=== PATIENT | female | born 1970 | race African-American/Black ===

== ENCOUNTER 2020-12-23 18:46 | Inpatient (IN) | payer OTHER ==
[2020-12-23] MEDS ORDERED: ACETAMINOPHEN 1000 MG/100 ML VIAL IVPB ONE (20:38)
[2020-12-23] MEDS ORDERED: DEXAMETHASONE SOD PHOSPHATE 4 MG/1 ML VIAL IVPUSH ONE (20:44)
[2020-12-23] MEDS ORDERED: DEXAMETHASONE SOD PHOSPHATE 10 MG/1 ML VIAL ONE (21:09)
[2020-12-23 21:58] LABS: BASO % 0.4 % (0-2.0); HEMATOCRIT 39.6 % (32.4-45.2); HEMOGLOBIN 12.7 GM/dL (10.7-15.3); MCH 26.3 pg (25.7-33.7); MCHC 32.2 g/dl (32.0-36.0); MEAN CELL VOLUME 81.7 fl (80-96); MEAN PLT VOLUME 8.7 fl (7.5-11.1); MONO % 4.6 % (3.8-10.2); PLATELET COUNT 292 10^3/uL (134-434); RBC 4.84 M/mm3 (3.60-5.2); RDW 17.6 % (11.6-15.6); WHITE BLOOD COUNT 6.4 K/mm3 (4.0-10.0)
[2020-12-23 22:08] LABS: INR 1.08 (0.83-1.09); PROTHROMBIN TIME (PATIENT) 12.7 SEC (9.7-13.0)
[2020-12-23 22:11] LABS: ACTIVATED PTT 31.5 SECONDS (25.2-36.5)
[2020-12-23 22:16] LABS: CHLORIDE 109 mmol/L (98-107); SODIUM 136 mmol/L (136-145)
[2020-12-23 22:19] LABS: CALCIUM 7.9 mg/dL (8.5-10.1)
[2020-12-23 22:20] LABS: ALBUMIN 3.1 g/dl (3.4-5.0); BLOOD UREA NITROGEN 10.3 mg/dL (7-18); CO2 20 mmol/L (21-32); MAGNESIUM 1.8 mg/dL (1.8-2.4)
[2020-12-23 22:23] LABS: CREATININE 1.5 mg/dL (0.55-1.3); PHOSPHOROUS 2.4 mg/dL (2.5-4.9); SGOT/AST 130 U/L (15-37); SGPT/ALT 74 U/L (13-61)
[2020-12-23 22:24] LABS: BILIRUBIN,DIRECT < 0.1 mg/dL (0.0-0.2)
[2020-12-23 22:25] LABS: BILIRUBIN,TOTAL 0.4 mg/dL (0.2-1); TOT PROT 8.1 g/dl (6.4-8.2)
[2020-12-23 22:26] LABS: ALK PHOS 67 U/L (45-117)
[2020-12-23 22:29] LABS: LDH 864 U/L (84-246)
[2020-12-23 22:40] LABS: VENOUS BASE EXCESS -2.7 mmol/L (-2-2); VENOUS O2 SATURATION 94.6 % (70-80); VENOUS PCO2 35.8 mmHg (38-52); VENOUS PH 7.397 (7.310-7.410)
[2020-12-23 22:40] LABS: GLUCOSE,RANDOM 96 mg/dL (74-106)
[2020-12-23 22:42] LABS: ANION GAP 6 MMOL/L (8-16)
[2020-12-23 23:27] LABS: MAGNESIUM 1.9 mg/dL (1.8-2.4)
[2020-12-23 23:30] LABS: PHOSPHOROUS 1.9 mg/dL (2.5-4.9)
[2020-12-23] MEDS ORDERED: ACETAMINOPHEN 325 MG TABLET (FP) PO ONE (23:50)
[2020-12-23] MEDS ORDERED: ACETAMINOPHEN 325 MG TABLET (FP) ONE (23:52)
[2020-12-24] MEDS ORDERED: ALBUTEROL SO4 HFA INHALER IH PRN (00:39)
[2020-12-24] MEDS ORDERED: GABAPENTIN 300 MG CAPSULE PO SCH (06:00)
[2020-12-24 07:34] VITALS: BMI 52.9
[2020-12-24 08:36] LABS: BASO % 0.1 % (0-2.0); HEMATOCRIT 37.1 % (32.4-45.2); HEMOGLOBIN 12.1 GM/dL (10.7-15.3); LYMPH % 16.9 % (8-40); MCH 26.7 pg (25.7-33.7); MCHC 32.6 g/dl (32.0-36.0); MEAN CELL VOLUME 81.9 fl (80-96); MEAN PLT VOLUME 9.2 fl (7.5-11.1); MONO % 1.9 % (3.8-10.2); NEUT % 81.1 % (42.8-82.8); PLATELET COUNT 317 10^3/uL (134-434); RBC 4.53 M/mm3 (3.60-5.2); RDW 17.4 % (11.6-15.6); WHITE BLOOD COUNT 5.2 K/mm3 (4.0-10.0)
[2020-12-24 08:55] LABS: CALCIUM 8.1 mg/dL (8.5-10.1)
[2020-12-24 08:56] LABS: BLOOD UREA NITROGEN 10.5 mg/dL (7-18)
[2020-12-24 08:59] LABS: CREATININE 1.3 mg/dL (0.55-1.3)
[2020-12-24 09:00] LABS: BILIRUBIN,TOTAL 0.2 mg/dL (0.2-1); TOT PROT 7.5 g/dl (6.4-8.2)
[2020-12-24] MEDS ORDERED: GABAPENTIN 400 MG CAPSULE ONE ×3 (10:17→20:42)
[2020-12-24] MEDS ORDERED: GABAPENTIN 100 MG CAPSULE ONE ×3 (10:17→20:42)
[2020-12-24] MEDS: amLODIPine BESYLATE 5 MG TABLET (FP) PO SCH (10:20)
[2020-12-24] MEDS: TOPIRAMATE 100 MG TABLET PO SCH ×2 (10:20→21:42)
[2020-12-24] MEDS: GABAPENTIN 400 MG, GABAPENTIN 100 MG PO SCH ×3 (10:20→21:42)
[2020-12-24] MEDS: ENOXAPARIN NA (PORCINE) 40 MG/0.4 ML DISP.SYRIN SQ SCH (10:20)
[2020-12-24] MEDS: guaiFENesin 200 MG/10 ML 10 ML UNIT-DOSE CUPS PO PRN ×2 (10:21→21:42)
[2020-12-24] MEDS: DEXAMETHASONE SOD PHOSPHATE 10 MG/1 ML VIAL IVPUSH SCH (10:21)
[2020-12-24] MEDS: ACETAMINOPHEN 325 MG TABLET (FP) PO PRN (10:22)
[2020-12-24] MEDS: CYCLOBENZAPRINE HCL 10 MG TABLET (FP) PO PRN (12:47)
[2020-12-24] MEDS: CHOLECALCIFEROL (VIT D3) 1,000 UNIT (25 MCG) TABLET PO SCH (12:47)
[2020-12-24] MEDS: ONDANSETRON 4 MG TABLET PO PRN (12:47)
[2020-12-24] MEDS: ASCORBIC ACID 500 MG TABLET (FP) PO SCH ×2 (12:47→21:42)
[2020-12-24] MEDS: ZINC SULFATE 220 MG CAPSULE (FP) PO SCH (12:47)
[2020-12-24] MEDS ORDERED: REMDESIVIR 200 MG in SODIUM CHLORIDE 250 ML IVPB ONE (15:00)
[2020-12-24 15:25] LABS: EPI CELLS 11 /uL (0-25.1); HYALINE CASTS 1 /uL (0-3.1); URINE APPEARANCE CLEAR; URINE BACTERIA 192 /uL (0-1359); URINE BILIRUBIN NEGATIVE (NEGATIVE); URINE COLOR YELLOW; URINE GLUCOSE (UA) NEGATIVE (NEGATIVE); URINE KETONE NEGATIVE (NEGATIVE); URINE LEUK ESTERASE NEGATIVE (NEGATIVE); URINE NITRITE NEGATIVE (NEGATIVE); URINE PROTEIN 3+ (NEGATIVE); URINE RBC 9 /uL (0-23.9); URINE UROBILINOGEN 0.2 mg/dL (0.2-1.0); URINE WBC 15 /uL (0-25.8)
[2020-12-24] MEDS ORDERED: PT OWN MED DRAWER 7, Y5N ONE (15:35)
[2020-12-25] MEDS ORDERED: GABAPENTIN 100 MG CAPSULE ONE ×3 (05:42→21:33)
[2020-12-25] MEDS ORDERED: GABAPENTIN 400 MG CAPSULE ONE ×3 (05:42→21:32)
[2020-12-25] MEDS: GABAPENTIN 400 MG, GABAPENTIN 100 MG PO SCH ×3 (06:18→21:41)
[2020-12-25] MEDS: guaiFENesin 200 MG/10 ML 10 ML UNIT-DOSE CUPS PO PRN (06:18)
[2020-12-25 08:28] LABS: HEMATOCRIT 36.5 % (32.4-45.2); HEMOGLOBIN 11.7 GM/dL (10.7-15.3); MCH 26.2 pg (25.7-33.7); MEAN CELL VOLUME 81.9 fl (80-96); MEAN PLT VOLUME 9.1 fl (7.5-11.1); PLATELET COUNT 310 10^3/uL (134-434); RBC 4.45 M/mm3 (3.60-5.2); RDW 17.8 % (11.6-15.6); WHITE BLOOD COUNT 11.3 K/mm3 (4.0-10.0)
[2020-12-25] MEDS: ACETAMINOPHEN 325 MG TABLET (FP) PO PRN (09:00)
[2020-12-25] MEDS: ASCORBIC ACID 500 MG TABLET (FP) PO SCH ×2 (09:01→21:41)
[2020-12-25] MEDS: ZINC SULFATE 220 MG CAPSULE (FP) PO SCH (09:01)
[2020-12-25] MEDS: amLODIPine BESYLATE 5 MG TABLET (FP) PO SCH (09:01)
[2020-12-25] MEDS: DEXAMETHASONE SOD PHOSPHATE 10 MG/1 ML VIAL IVPUSH SCH (09:01)
[2020-12-25] MEDS: TOPIRAMATE 100 MG TABLET PO SCH ×2 (09:01→21:41)
[2020-12-25] MEDS: CHOLECALCIFEROL (VIT D3) 1,000 UNIT (25 MCG) TABLET PO SCH (09:01)
[2020-12-25] MEDS: ENOXAPARIN NA (PORCINE) 40 MG/0.4 ML DISP.SYRIN SQ SCH (09:02)
[2020-12-25 09:58] LABS: ALBUMIN 2.9 g/dl (3.4-5.0); BLOOD UREA NITROGEN 16.7 mg/dL (7-18)
[2020-12-25 10:00] LABS: CREATININE 1.6 mg/dL (0.55-1.3)
[2020-12-25 10:03] LABS: BILIRUBIN,TOTAL 0.5 mg/dL (0.2-1); TOT PROT 7.2 g/dl (6.4-8.2)
[2020-12-25] MEDS: PANTOPRAZOLE 40 MG TABLET PO SCH (12:23)
[2020-12-25] MEDS: REMDESIVIR 100 MG in SODIUM CHLORIDE 250 ML IVPB SCH (13:53)
[2020-12-26] MEDS ORDERED: GABAPENTIN 400 MG CAPSULE ONE ×3 (05:14→22:09)
[2020-12-26] MEDS ORDERED: GABAPENTIN 100 MG CAPSULE ONE ×3 (05:15→22:09)
[2020-12-26] MEDS: GABAPENTIN 400 MG, GABAPENTIN 100 MG PO SCH ×3 (05:17→22:10)
[2020-12-26] MEDS: PANTOPRAZOLE 40 MG TABLET PO SCH (09:03)
[2020-12-26] MEDS: ZINC SULFATE 220 MG CAPSULE (FP) PO SCH (09:03)
[2020-12-26] MEDS: ASCORBIC ACID 500 MG TABLET (FP) PO SCH ×2 (09:04→22:10)
[2020-12-26] MEDS: amLODIPine BESYLATE 5 MG TABLET (FP) PO SCH (09:04)
[2020-12-26] MEDS: CHOLECALCIFEROL (VIT D3) 1,000 UNIT (25 MCG) TABLET PO SCH (09:04)
[2020-12-26] MEDS: DEXAMETHASONE SOD PHOSPHATE 10 MG/1 ML VIAL IVPUSH SCH (09:04)
[2020-12-26] MEDS: TOPIRAMATE 100 MG TABLET PO SCH ×2 (09:04→22:10)
[2020-12-26] MEDS: ENOXAPARIN NA (PORCINE) 40 MG/0.4 ML DISP.SYRIN SQ SCH (09:04)
[2020-12-26 09:35] LABS: BLOOD UREA NITROGEN 20.3 mg/dL (7-18); CALCIUM 8.4 mg/dL (8.5-10.1)
[2020-12-26 09:38] LABS: CREATININE 1.5 mg/dL (0.55-1.3)
[2020-12-26] MEDS ORDERED: ALBUTEROL SO4 HFA INHALER IH SCH (12:00)
[2020-12-26] MEDS: BUDESONIDE/FORMETEROL FUMARATE 160/4.5 mcg INHALER IH SCH ×2 (12:21→22:10)
[2020-12-26] MEDS: ALBUTEROL SO4 HFA INHALER IH SCH ×3 (12:21→20:44)
[2020-12-26] MEDS: REMDESIVIR 100 MG in SODIUM CHLORIDE 250 ML IVPB SCH (14:09)
[2020-12-27] MEDS: guaiFENesin 200 MG/10 ML 10 ML UNIT-DOSE CUPS PO PRN (04:03)
[2020-12-27] MEDS: CYCLOBENZAPRINE HCL 10 MG TABLET (FP) PO PRN (04:03)
[2020-12-27] MEDS ORDERED: GABAPENTIN 400 MG CAPSULE ONE ×2 (06:32→20:37)
[2020-12-27] MEDS ORDERED: GABAPENTIN 100 MG CAPSULE ONE ×2 (06:33→20:37)
[2020-12-27] MEDS: GABAPENTIN 400 MG, GABAPENTIN 100 MG PO SCH ×3 (06:39→21:00)
[2020-12-27] MEDS: ALBUTEROL SO4 HFA INHALER IH SCH ×4 (08:43→21:17)
[2020-12-27] MEDS: ENOXAPARIN NA (PORCINE) 40 MG/0.4 ML DISP.SYRIN SQ SCH (11:02)
[2020-12-27] MEDS: DEXAMETHASONE SOD PHOSPHATE 10 MG/1 ML VIAL IVPUSH SCH (11:02)
[2020-12-27] MEDS: PANTOPRAZOLE 40 MG TABLET PO SCH (11:03)
[2020-12-27] MEDS: ASCORBIC ACID 500 MG TABLET (FP) PO SCH ×2 (11:03→21:00)
[2020-12-27] MEDS: TOPIRAMATE 100 MG TABLET PO SCH ×2 (11:03→21:00)
[2020-12-27] MEDS: amLODIPine BESYLATE 5 MG TABLET (FP) PO SCH (11:03)
[2020-12-27] MEDS: CHOLECALCIFEROL (VIT D3) 1,000 UNIT (25 MCG) TABLET PO SCH (11:03)
[2020-12-27] MEDS: BUDESONIDE/FORMETEROL FUMARATE 160/4.5 mcg INHALER IH SCH ×2 (11:03→21:19)
[2020-12-27] MEDS: ZINC SULFATE 220 MG CAPSULE (FP) PO SCH (11:03)
[2020-12-27] MEDS: REMDESIVIR 100 MG in SODIUM CHLORIDE 250 ML IVPB SCH (13:40)
[2020-12-27] MEDS: MELATONIN 5 MG TABLETS PO PRN (21:15)
[2020-12-28] MEDS ORDERED: GABAPENTIN 400 MG CAPSULE ONE ×3 (05:09→20:46)
[2020-12-28] MEDS ORDERED: GABAPENTIN 100 MG CAPSULE ONE ×3 (05:09→20:46)
[2020-12-28] MEDS: GABAPENTIN 400 MG, GABAPENTIN 100 MG PO SCH ×3 (05:35→21:37)
[2020-12-28] MEDS: guaiFENesin 200 MG/10 ML 10 ML UNIT-DOSE CUPS PO PRN ×2 (10:15→16:53)
[2020-12-28] MEDS: ENOXAPARIN NA (PORCINE) 40 MG/0.4 ML DISP.SYRIN SQ SCH (10:15)
[2020-12-28] MEDS: DEXAMETHASONE SOD PHOSPHATE 10 MG/1 ML VIAL IVPUSH SCH (10:16)
[2020-12-28] MEDS: ALBUTEROL SO4 HFA INHALER IH SCH ×4 (10:17→20:30)
[2020-12-28] MEDS: ASCORBIC ACID 500 MG TABLET (FP) PO SCH ×2 (10:17→21:37)
[2020-12-28] MEDS: PANTOPRAZOLE 40 MG TABLET PO SCH (10:17)
[2020-12-28] MEDS: TOPIRAMATE 100 MG TABLET PO SCH ×2 (10:17→21:37)
[2020-12-28] MEDS: ZINC SULFATE 220 MG CAPSULE (FP) PO SCH (10:17)
[2020-12-28] MEDS: amLODIPine BESYLATE 5 MG TABLET (FP) PO SCH (10:17)
[2020-12-28] MEDS: BUDESONIDE/FORMETEROL FUMARATE 160/4.5 mcg INHALER IH SCH ×2 (10:17→21:47)
[2020-12-28] MEDS: CHOLECALCIFEROL (VIT D3) 1,000 UNIT (25 MCG) TABLET PO SCH (10:17)
[2020-12-28] MEDS: ACETAMINOPHEN 325 MG TABLET (FP) PO PRN (10:18)
[2020-12-28] MEDS ORDERED: PT OWN MED DRAWER 7, Y5N ONE (13:00)
[2020-12-28] MEDS: REMDESIVIR 100 MG in SODIUM CHLORIDE 250 ML IVPB SCH (14:50)
[2020-12-28] MEDS: MELATONIN 5 MG TABLETS PO PRN (21:37)
[2020-12-29] MEDS ORDERED: GABAPENTIN 400 MG CAPSULE ONE ×3 (06:28→21:50)
[2020-12-29] MEDS ORDERED: GABAPENTIN 100 MG CAPSULE ONE ×3 (06:29→21:51)
[2020-12-29] MEDS: GABAPENTIN 400 MG, GABAPENTIN 100 MG PO SCH ×3 (06:47→22:34)
[2020-12-29] MEDS: ALBUTEROL SO4 HFA INHALER IH SCH ×4 (09:00→20:48)
[2020-12-29] MEDS: ZINC SULFATE 220 MG CAPSULE (FP) PO SCH (11:20)
[2020-12-29] MEDS: ASCORBIC ACID 500 MG TABLET (FP) PO SCH ×2 (11:20→22:35)
[2020-12-29] MEDS: guaiFENesin 200 MG/10 ML 10 ML UNIT-DOSE CUPS PO PRN (11:20)
[2020-12-29] MEDS: PANTOPRAZOLE 40 MG TABLET PO SCH (11:20)
[2020-12-29] MEDS: DEXAMETHASONE SOD PHOSPHATE 10 MG/1 ML VIAL IVPUSH SCH (11:21)
[2020-12-29] MEDS: amLODIPine BESYLATE 5 MG TABLET (FP) PO SCH (11:21)
[2020-12-29] MEDS: ENOXAPARIN NA (PORCINE) 40 MG/0.4 ML DISP.SYRIN SQ SCH (11:21)
[2020-12-29] MEDS: BUDESONIDE/FORMETEROL FUMARATE 160/4.5 mcg INHALER IH SCH ×2 (11:22→22:35)
[2020-12-29] MEDS: TOPIRAMATE 100 MG TABLET PO SCH ×2 (11:23→22:35)
[2020-12-29] MEDS: CHOLECALCIFEROL (VIT D3) 1,000 UNIT (25 MCG) TABLET PO SCH (11:28)
[2020-12-29] MEDS: ACETAMINOPHEN 325 MG TABLET (FP) PO PRN (11:32)
[2020-12-30] MEDS ORDERED: GABAPENTIN 100 MG CAPSULE ONE ×3 (05:37→22:54)
[2020-12-30] MEDS ORDERED: GABAPENTIN 400 MG CAPSULE ONE ×3 (05:37→22:54)
[2020-12-30] MEDS: GABAPENTIN 400 MG, GABAPENTIN 100 MG PO SCH ×3 (05:42→22:56)
[2020-12-30] MEDS: ZINC SULFATE 220 MG CAPSULE (FP) PO SCH (09:23)
[2020-12-30] MEDS: PANTOPRAZOLE 40 MG TABLET PO SCH (09:23)
[2020-12-30] MEDS: CHOLECALCIFEROL (VIT D3) 1,000 UNIT (25 MCG) TABLET PO SCH (09:23)
[2020-12-30] MEDS: TOPIRAMATE 100 MG TABLET PO SCH ×2 (09:23→22:56)
[2020-12-30] MEDS: amLODIPine BESYLATE 5 MG TABLET (FP) PO SCH (09:23)
[2020-12-30] MEDS: ALBUTEROL SO4 HFA INHALER IH SCH ×4 (09:23→20:49)
[2020-12-30] MEDS: ASCORBIC ACID 500 MG TABLET (FP) PO SCH ×2 (09:23→22:56)
[2020-12-30] MEDS: DEXAMETHASONE 4 MG TABLET (FP) PO SCH (09:23)
[2020-12-30] MEDS: ENOXAPARIN NA (PORCINE) 40 MG/0.4 ML DISP.SYRIN SQ SCH (09:24)
[2020-12-30] MEDS: BUDESONIDE/FORMETEROL FUMARATE 160/4.5 mcg INHALER IH SCH ×2 (09:24→22:56)
[2020-12-30] MEDS ORDERED: MAG HYDROX/AL HYDROX/SIMETH 30 ML UNIT-DOSE CUP PO PRN (10:00)
[2020-12-31] MEDS ORDERED: GABAPENTIN 100 MG CAPSULE ONE ×3 (06:12→21:19)
[2020-12-31] MEDS ORDERED: GABAPENTIN 400 MG CAPSULE ONE ×3 (06:12→21:18)
[2020-12-31] MEDS: GABAPENTIN 400 MG, GABAPENTIN 100 MG PO SCH ×3 (06:16→21:24)
[2020-12-31 08:29] LABS: BASO % 0.1 % (0-2.0); EOS % 0.3 % (0-4.5); HEMATOCRIT 37.1 % (32.4-45.2); HEMOGLOBIN 11.9 GM/dL (10.7-15.3); LYMPH % 15.5 % (8-40); MCH 26.1 pg (25.7-33.7); MCHC 32.1 g/dl (32.0-36.0); MEAN CELL VOLUME 81.5 fl (80-96); MEAN PLT VOLUME 8.4 fl (7.5-11.1); MONO % 6.5 % (3.8-10.2); NEUT % 77.6 % (42.8-82.8); PLATELET COUNT 618 10^3/uL (134-434); RBC 4.55 M/mm3 (3.60-5.2); RDW 17.2 % (11.6-15.6); WHITE BLOOD COUNT 11.6 K/mm3 (4.0-10.0)
[2020-12-31 08:51] LABS: CALCIUM 8.9 mg/dL (8.5-10.1)
[2020-12-31 08:52] LABS: ALBUMIN 2.7 g/dl (3.4-5.0); BLOOD UREA NITROGEN 28.6 mg/dL (7-18)
[2020-12-31 08:55] LABS: CREATININE 1.4 mg/dL (0.55-1.3)
[2020-12-31 08:56] LABS: BILIRUBIN,TOTAL 0.4 mg/dL (0.2-1); TOT PROT 6.8 g/dl (6.4-8.2)
[2020-12-31] MEDS: ZINC SULFATE 220 MG CAPSULE (FP) PO SCH (09:30)
[2020-12-31] MEDS: PANTOPRAZOLE 40 MG TABLET PO SCH (09:30)
[2020-12-31] MEDS: CHOLECALCIFEROL (VIT D3) 1,000 UNIT (25 MCG) TABLET PO SCH (09:30)
[2020-12-31] MEDS: TOPIRAMATE 100 MG TABLET PO SCH ×2 (09:30→21:24)
[2020-12-31] MEDS: amLODIPine BESYLATE 5 MG TABLET (FP) PO SCH (09:30)
[2020-12-31] MEDS: ASCORBIC ACID 500 MG TABLET (FP) PO SCH ×2 (09:31→21:24)
[2020-12-31] MEDS: BUDESONIDE/FORMETEROL FUMARATE 160/4.5 mcg INHALER IH SCH ×2 (09:31→21:24)
[2020-12-31] MEDS: ALBUTEROL SO4 HFA INHALER IH SCH ×4 (09:31→21:24)
[2020-12-31] MEDS: DEXAMETHASONE 4 MG TABLET (FP) PO SCH (09:31)
[2020-12-31] MEDS: ONDANSETRON 4 MG TABLET PO PRN (09:46)
[2020-12-31] MEDS ORDERED: PT OWN MED DRAWER 7, Y5N ONE (13:50)
[2020-12-31] MEDS: guaiFENesin/CODEINE 10 ML UNIT-DOSE CUPS PO PRN (21:23)
[2020-12-31] MEDS: MELATONIN 5 MG TABLETS PO PRN (21:24)
[2021-01-01] MEDS ORDERED: GABAPENTIN 400 MG CAPSULE ONE ×3 (05:47→20:38)
[2021-01-01] MEDS ORDERED: GABAPENTIN 100 MG CAPSULE ONE ×3 (05:47→20:38)
[2021-01-01] MEDS: GABAPENTIN 400 MG, GABAPENTIN 100 MG PO SCH ×3 (06:43→21:03)
[2021-01-01] MEDS: ALBUTEROL SO4 HFA INHALER IH SCH ×4 (10:05→20:50)
[2021-01-01] MEDS ORDERED: PT OWN MED DRAWER 7, Y5N ONE ×2 (10:10→13:53)
[2021-01-01] MEDS: ASCORBIC ACID 500 MG TABLET (FP) PO SCH ×2 (10:15→21:02)
[2021-01-01] MEDS: ZINC SULFATE 220 MG CAPSULE (FP) PO SCH (10:15)
[2021-01-01] MEDS: TOPIRAMATE 100 MG TABLET PO SCH ×2 (10:15→21:03)
[2021-01-01] MEDS: PANTOPRAZOLE 40 MG TABLET PO SCH (10:15)
[2021-01-01] MEDS: amLODIPine BESYLATE 5 MG TABLET (FP) PO SCH (10:15)
[2021-01-01] MEDS: CHOLECALCIFEROL (VIT D3) 1,000 UNIT (25 MCG) TABLET PO SCH (10:15)
[2021-01-01] MEDS: BUDESONIDE/FORMETEROL FUMARATE 160/4.5 mcg INHALER IH SCH ×2 (10:16→21:02)
[2021-01-01] MEDS: guaiFENesin/CODEINE 10 ML UNIT-DOSE CUPS PO PRN ×2 (10:16→21:02)
[2021-01-01] MEDS: DEXAMETHASONE 4 MG TABLET (FP) PO SCH (10:16)
[2021-01-01] MEDS: MELATONIN 5 MG TABLETS PO PRN (21:03)
[2021-01-02] MEDS ORDERED: GABAPENTIN 400 MG CAPSULE ONE (05:14)
[2021-01-02] MEDS ORDERED: GABAPENTIN 100 MG CAPSULE ONE (05:14)
[2021-01-02] MEDS: GABAPENTIN 400 MG, GABAPENTIN 100 MG PO SCH (06:17)
[2021-01-02] MEDS: ALBUTEROL SO4 HFA INHALER IH SCH ×4 (08:34→21:44)
[2021-01-02] MEDS ORDERED: PT OWN MED DRAWER 7, Y5N ONE (10:32)
[2021-01-02] MEDS: ZINC SULFATE 220 MG CAPSULE (FP) PO SCH (10:33)
[2021-01-02] MEDS: TOPIRAMATE 100 MG TABLET PO SCH ×2 (10:33→21:38)
[2021-01-02] MEDS: ASCORBIC ACID 500 MG TABLET (FP) PO SCH ×2 (10:33→21:39)
[2021-01-02] MEDS: CHOLECALCIFEROL (VIT D3) 1,000 UNIT (25 MCG) TABLET PO SCH (10:33)
[2021-01-02] MEDS: PANTOPRAZOLE 40 MG TABLET PO SCH (10:33)
[2021-01-02] MEDS: BUDESONIDE/FORMETEROL FUMARATE 160/4.5 mcg INHALER IH SCH ×2 (10:33→21:44)
[2021-01-02] MEDS: amLODIPine BESYLATE 5 MG TABLET (FP) PO SCH (10:33)
[2021-01-02] MEDS: GABAPENTIN 100 MG CAPSULE PO SCH (16:10)
[2021-01-02] MEDS: ASPIRIN COATED 81 MG TABLET.EC PO SCH (16:11)
[2021-01-02] MEDS: GABAPENTIN 300 MG CAPSULE PO SCH (21:38)
[2021-01-02] MEDS: MELATONIN 5 MG TABLETS PO PRN (21:39)
[2021-01-03] MEDS: GABAPENTIN 100 MG CAPSULE PO SCH ×2 (06:38→14:22)
[2021-01-03] MEDS: ALBUTEROL SO4 HFA INHALER IH SCH ×4 (08:30→20:37)
[2021-01-03] MEDS ORDERED: PT OWN MED DRAWER 7, Y5N ONE (08:48)
[2021-01-03 09:01] LABS: HEMOGLOBIN 11.5 GM/dL (10.7-15.3); MCH 26.7 pg (25.7-33.7); MEAN CELL VOLUME 81.1 fl (80-96); MEAN PLT VOLUME 7.6 fl (7.5-11.1); PLATELET COUNT 613 10^3/uL (134-434); RBC 4.32 M/mm3 (3.60-5.2); RDW 17.5 % (11.6-15.6); WHITE BLOOD COUNT 10.4 K/mm3 (4.0-10.0)
[2021-01-03 09:29] LABS: CALCIUM 8.9 mg/dL (8.5-10.1)
[2021-01-03 09:30] LABS: ALBUMIN 2.9 g/dl (3.4-5.0); BLOOD UREA NITROGEN 31.4 mg/dL (7-18)
[2021-01-03 09:33] LABS: CREATININE 1.6 mg/dL (0.55-1.3)
[2021-01-03 09:35] LABS: BILIRUBIN,TOTAL 0.3 mg/dL (0.2-1); TOT PROT 6.5 g/dl (6.4-8.2)
[2021-01-03] MEDS: ASPIRIN COATED 81 MG TABLET.EC PO SCH (10:29)
[2021-01-03] MEDS: PANTOPRAZOLE 40 MG TABLET PO SCH (10:29)
[2021-01-03] MEDS: TOPIRAMATE 100 MG TABLET PO SCH ×2 (10:29→22:46)
[2021-01-03] MEDS: CHOLECALCIFEROL (VIT D3) 1,000 UNIT (25 MCG) TABLET PO SCH (10:29)
[2021-01-03] MEDS: ZINC SULFATE 220 MG CAPSULE (FP) PO SCH (10:29)
[2021-01-03] MEDS: ASCORBIC ACID 500 MG TABLET (FP) PO SCH ×2 (10:29→22:46)
[2021-01-03] MEDS: amLODIPine BESYLATE 5 MG TABLET (FP) PO SCH (10:29)
[2021-01-03] MEDS: BUDESONIDE/FORMETEROL FUMARATE 160/4.5 mcg INHALER IH SCH ×2 (10:29→22:47)
[2021-01-03] MEDS: ACETAMINOPHEN 325 MG TABLET (FP) PO PRN (22:46)
[2021-01-03] MEDS: GABAPENTIN 300 MG CAPSULE PO SCH (22:46)
[2021-01-04] MEDS: GABAPENTIN 100 MG CAPSULE PO SCH ×2 (06:45→13:05)
[2021-01-04] MEDS ORDERED: guaiFENesin 200 MG/10 ML 10 ML UNIT-DOSE CUPS PO PRN (10:40)
[2021-01-04] MEDS: ZINC SULFATE 220 MG CAPSULE (FP) PO SCH (10:42)
[2021-01-04] MEDS: PANTOPRAZOLE 40 MG TABLET PO SCH (10:42)
[2021-01-04] MEDS: ASPIRIN COATED 81 MG TABLET.EC PO SCH (10:42)
[2021-01-04] MEDS: amLODIPine BESYLATE 5 MG TABLET (FP) PO SCH (10:42)
[2021-01-04] MEDS: CHOLECALCIFEROL (VIT D3) 1,000 UNIT (25 MCG) TABLET PO SCH (10:42)
[2021-01-04] MEDS: ASCORBIC ACID 500 MG TABLET (FP) PO SCH ×2 (10:42→22:56)
[2021-01-04] MEDS: TOPIRAMATE 100 MG TABLET PO SCH ×2 (10:42→22:56)
[2021-01-04] MEDS: ALBUTEROL SO4 HFA INHALER IH SCH ×4 (10:43→20:49)
[2021-01-04] MEDS: BUDESONIDE/FORMETEROL FUMARATE 160/4.5 mcg INHALER IH SCH ×2 (10:43→22:56)
[2021-01-04] MEDS: ONDANSETRON 4 MG TABLET PO PRN (13:06)
[2021-01-04] MEDS: GABAPENTIN 300 MG CAPSULE PO SCH (22:56)
[2021-01-05] MEDS: GABAPENTIN 100 MG CAPSULE PO SCH (05:56)
[2021-01-05] MEDS: ASPIRIN COATED 81 MG TABLET.EC PO SCH (10:56)
[2021-01-05] MEDS: amLODIPine BESYLATE 5 MG TABLET (FP) PO SCH (10:56)
[2021-01-05] MEDS: ASCORBIC ACID 500 MG TABLET (FP) PO SCH (10:56)
[2021-01-05] MEDS: ZINC SULFATE 220 MG CAPSULE (FP) PO SCH (10:56)
[2021-01-05] MEDS: CHOLECALCIFEROL (VIT D3) 1,000 UNIT (25 MCG) TABLET PO SCH (10:56)
[2021-01-05] MEDS: TOPIRAMATE 100 MG TABLET PO SCH (10:56)
[2021-01-05] MEDS: PANTOPRAZOLE 40 MG TABLET PO SCH (10:56)
[2021-01-05] MEDS: BUDESONIDE/FORMETEROL FUMARATE 160/4.5 mcg INHALER IH SCH (10:57)
[2021-01-05] MEDS: ALBUTEROL SO4 HFA INHALER IH SCH ×2 (10:57→11:48)
[2021-01-05 11:05] VITALS: BP 118/61; PULSE 85; TEMP 98.1
== END 2021-01-05 12:39 | DRG 177 ==
LOC: JER 18:46 → JERBED 20:45 → J8W 12-24 06:03
PROVIDERS: ADMIT Internal Medicine; ATTEND Internal Medicine
PROC: XW033E5 Introduction of Remdesivir Anti-infective into Peripheral Vein, Percutaneous Approach, New Technology Group 5 (ICD-10-PCS; principal; 2020-12-24)
DX: U07.1 COVID-19 (principal); J96.01 Acute respiratory failure with hypoxia; J12.82 Pneumonia due to coronavirus disease 2019; Z68.43 Body mass index [BMI] 50.0-59.9, adult; M62.82 Rhabdomyolysis; N17.9 Acute kidney failure, unspecified; I10 Essential (primary) hypertension; G43.909 Migraine, unspecified, not intractable, without status migrainosus; J32.9 Chronic sinusitis, unspecified; G62.9 Polyneuropathy, unspecified; G47.33 Obstructive sleep apnea (adult) (pediatric); E66.01 Morbid (severe) obesity due to excess calories; R47.1 Dysarthria and anarthria
CPT/HCPCS: 36415; 70450-TC; 71045-TC-FY; 80048; 80053; 81003; 82248; 82550; 82607; 82728; 82803; 83036; 83605; 83615; 83735; 84100; 84132; 84443; 84484; 85025; 85027; 85379; 85610; 85730; 86140; 86780; 87040; 87804; 87899; 93005; 93010; 94010; 94660; 94761; 97116-GP; 97162-GP; 99285-25; C9399; C9803; J0131; J1100; U0003; U0005

== ENCOUNTER 2022-04-02 02:57 | Observation (INO) | payer OTHER ==
[2022-04-02 03:52] LABS: BASO % 0.7 % (0-2.0); EOS % 0.5 % (0-4.5); HEMATOCRIT 37.7 % (32.4-45.2); HEMOGLOBIN 11.9 GM/dL (10.7-15.3); LYMPH % 24.7 % (8-40); MCH 26.3 pg (25.7-33.7); MCHC 31.6 g/dl (32.0-36.0); MEAN CELL VOLUME 83.3 fl (80-96); MEAN PLT VOLUME 8.4 fl (7.5-11.1); MONO % 8.7 % (3.8-10.2); NEUT % 65.4 % (42.8-82.8); PLATELET COUNT 390 10^3/uL (134-434); RBC 4.52 M/mm3 (3.60-5.2); RDW 16.1 % (11.6-15.6); WHITE BLOOD COUNT 12.8 K/mm3 (4.0-10.0)
[2022-04-02 04:02] LABS: INR 1.12 (0.83-1.09); PROTHROMBIN TIME (PATIENT) 12.9 SEC (9.7-13.0)
[2022-04-02 04:05] LABS: ACTIVATED PTT 31.8 SECONDS (25.2-36.5)
[2022-04-02 04:15] LABS: BLOOD UREA NITROGEN 22.8 mg/dL (7-18); CALCIUM 9.1 mg/dL (8.5-10.1)
[2022-04-02 04:16] LABS: ALBUMIN 3.6 g/dl (3.4-5.0)
[2022-04-02 04:19] LABS: CREATININE 1.7 mg/dL (0.55-1.3)
[2022-04-02 04:20] LABS: BILIRUBIN,TOTAL 0.2 mg/dL (0.2-1); TOT PROT 7.6 g/dl (6.4-8.2)
[2022-04-02 04:23] LABS: N-TERMINAL BNP 133.5 pg/ml (5-125)
[2022-04-02] MEDS ORDERED: ACETAMINOPHEN 1000 MG/100 ML BAG IVPB ONE (04:27)
[2022-04-02] MEDS ORDERED: ASPIRIN 325 MG TABLET PO ONE (04:27)
[2022-04-02] MEDS ORDERED: ASPIRIN 81 MG CHEWABLE TABLETS ONE (04:28)
[2022-04-02] MEDS ORDERED: ACETAMINOPHEN INJECTION 100 ML IVPB ONE (04:28)
[2022-04-02] MEDS ORDERED: SODIUM CHLORIDE 1,000 ML IV STA (05:37)
[2022-04-02] MEDS ORDERED: ONDANSETRON 4 MG/2 ML VIAL IVPUSH ONE (06:48)
[2022-04-02] MEDS ORDERED: ONDANSETRON 4 MG/2 ML VIAL ONE (06:49)
[2022-04-02] MEDS ORDERED: morphine CARPU-JECT 4 MG/1 ML DISP.SYRIN IVPUSH ONE ×2 (08:55→12:59)
[2022-04-02] MEDS ORDERED: morphine SULFATE 4 MG/ML VIAL ONE ×3 (08:59→19:42)
[2022-04-02] MEDS ORDERED: ACETAMINOPHEN 325 MG TABLET (FP) PO PRN (13:08)
[2022-04-02] MEDS ORDERED: ALBUTEROL SO4 0.042% IH SOL 1.25 MG/3 ML VIAL.NEB NEB PRN (15:09)
[2022-04-02] MEDS ORDERED: morphine SULFATE 4 MG/ML VIAL IVPUSH ONE (19:15)
[2022-04-02] MEDS ORDERED: GABAPENTIN 300 MG CAPSULE ONE (22:41)
[2022-04-02] MEDS ORDERED: ATORVASTATIN CA 80 MG TABLET (FP) ONE (22:41)
[2022-04-02] MEDS: GABAPENTIN 300 MG CAPSULE PO SCH (22:45)
[2022-04-02] MEDS: ATORVASTATIN CA 80 MG TABLET (FP) PO SCH (22:45)
[2022-04-03] MEDS ORDERED: ACETAMINOPHEN 325 MG TABLET (FP) ONE (01:43)
[2022-04-03] MEDS: GABAPENTIN 300 MG CAPSULE PO SCH (06:15)
[2022-04-03] MEDS ORDERED: GABAPENTIN 300 MG CAPSULE ONE (06:16)
[2022-04-03] MEDS ORDERED: ACETAMINOPHEN 325 MG TABLET (FP) PO PRN (08:30)
[2022-04-03] MEDS ORDERED: ALBUTEROL SO4 HFA INHALER IH PRN (08:30)
[2022-04-03] MEDS ORDERED: MELATONIN 5 MG TABLETS PO PRN (08:30)
[2022-04-03 09:21] LABS: BASO % 0.4 % (0-2.0); EOS % 1.2 % (0-4.5); HEMOGLOBIN 12.2 GM/dL (10.7-15.3); LYMPH % 25.6 % (8-40); MCH 26.9 pg (25.7-33.7); MEAN PLT VOLUME 8.4 fl (7.5-11.1); MONO % 5.3 % (3.8-10.2); NEUT % 67.5 % (42.8-82.8); PLATELET COUNT 407 10^3/uL (134-434); RBC 4.53 M/mm3 (3.60-5.2); RDW 16.2 % (11.6-15.6); WHITE BLOOD COUNT 10.1 K/mm3 (4.0-10.0)
[2022-04-03 09:27] LABS: INR 1.17 (0.83-1.09); PROTHROMBIN TIME (PATIENT) 13.5 SEC (9.7-13.0)
[2022-04-03 09:30] LABS: ACTIVATED PTT 31.7 SECONDS (25.2-36.5)
[2022-04-03 09:44] LABS: CALCIUM 9.1 mg/dL (8.5-10.1)
[2022-04-03 09:45] LABS: ALBUMIN 3.5 g/dl (3.4-5.0); BLOOD UREA NITROGEN 19.7 mg/dL (7-18); MAGNESIUM 2.2 mg/dL (1.8-2.4)
[2022-04-03] MEDS ORDERED: PANTOPRAZOLE 40 MG TABLET PO ONE (09:47)
[2022-04-03] MEDS ORDERED: amLODIPine BESYLATE 10 MG TABLET (FP) ONE (09:47)
[2022-04-03 09:48] LABS: CREATININE 1.6 mg/dL (0.55-1.3); PHOSPHOROUS 3.3 mg/dL (2.5-4.9)
[2022-04-03] MEDS ORDERED: ENOXAPARIN NA (PORCINE) 40 MG/0.4 ML DISP.SYRIN SQ ONE (09:48)
[2022-04-03] MEDS ORDERED: ASPIRIN 81 MG CHEWABLE TABLETS ONE (09:48)
[2022-04-03] MEDS ORDERED: oxyCODONE HCL 5 MG TABLET ONE ×2 (09:48→14:48)
[2022-04-03 09:49] LABS: BILIRUBIN,TOTAL 0.5 mg/dL (0.2-1); TOT PROT 7.8 g/dl (6.4-8.2)
[2022-04-03] MEDS: ENOXAPARIN NA (PORCINE) 40 MG/0.4 ML DISP.SYRIN SQ SCH (09:58)
[2022-04-03] MEDS: amLODIPine BESYLATE 10 MG TABLET (FP) PO SCH (09:58)
[2022-04-03] MEDS: ASPIRIN COATED 81 MG TABLET.EC PO SCH (09:58)
[2022-04-03] MEDS: PANTOPRAZOLE 40 MG TABLET PO SCH (09:59)
[2022-04-03] MEDS: oxyCODONE HCL 5 MG TABLET PO PRN ×3 (09:59→23:15)
[2022-04-03] MEDS: BUDESONIDE/FORMETEROL FUMARATE 160/4.5 mcg INHALER IH SCH (10:15)
[2022-04-03] MEDS ORDERED: GABAPENTIN 100 MG CAPSULE ONE (14:48)
[2022-04-03] MEDS: GABAPENTIN 100 MG CAPSULE PO SCH (14:53)
[2022-04-03] MEDS ORDERED: GABAPENTIN 300 MG CAPSULE PO SCH (22:00)
[2022-04-03] MEDS: ACETAMINOPHEN 325 MG TABLET (FP) PO PRN (23:14)
[2022-04-03] MEDS: ATORVASTATIN CA 80 MG TABLET (FP) PO SCH (23:15)
[2022-04-04] MEDS: BUDESONIDE/FORMETEROL FUMARATE 160/4.5 mcg INHALER IH SCH ×3 (04:38→21:58)
[2022-04-04 04:53] VITALS: BMI 53.7
[2022-04-04] MEDS: GABAPENTIN 100 MG CAPSULE PO SCH ×2 (06:16→17:57)
[2022-04-04] MEDS: amLODIPine BESYLATE 10 MG TABLET (FP) PO SCH (09:46)
[2022-04-04] MEDS: ASPIRIN COATED 81 MG TABLET.EC PO SCH (09:46)
[2022-04-04] MEDS: ENOXAPARIN NA (PORCINE) 40 MG/0.4 ML DISP.SYRIN SQ SCH (09:47)
[2022-04-04] MEDS: PANTOPRAZOLE 40 MG TABLET PO SCH (09:47)
[2022-04-04 12:15] LABS: BLOOD UREA NITROGEN 19.1 mg/dL (7-18); CALCIUM 8.9 mg/dL (8.5-10.1)
[2022-04-04 12:18] LABS: CREATININE 1.6 mg/dL (0.55-1.3)
[2022-04-04 12:20] LABS: BILIRUBIN,TOTAL 0.3 mg/dL (0.2-1); TOT PROT 6.8 g/dl (6.4-8.2)
[2022-04-04] MEDS: oxyCODONE HCL 5 MG TABLET PO PRN (17:51)
[2022-04-04] MEDS: ACETAMINOPHEN 325 MG TABLET (FP) PO PRN (17:52)
[2022-04-04] MEDS ORDERED: ALBUTEROL SO4 0.042% IH SOL 1.25 MG/3 ML VIAL.NEB NEB PRN (18:26)
[2022-04-04] MEDS ORDERED: ACETAMINOPHEN 325 MG TABLET (FP) PO PRN ×2 (18:26)
[2022-04-04] MEDS ORDERED: oxyCODONE HCL 5 MG TABLET PO PRN (18:26)
[2022-04-04 18:30] LABS: PH,URINE 5.5 (5.0-8.0); URINE APPEARANCE CLEAR; URINE BILIRUBIN NEGATIVE (NEGATIVE); URINE COLOR YELLOW; URINE GLUCOSE (UA) NEGATIVE (NEGATIVE); URINE KETONE NEGATIVE (NEGATIVE); URINE LEUK ESTERASE NEGATIVE (NEGATIVE); URINE NITRITE NEGATIVE (NEGATIVE); URINE PROTEIN TRACE (NEGATIVE); URINE UROBILINOGEN 0.2 mg/dL (0.2-1.0)
[2022-04-04] MEDS: GABAPENTIN 300 MG CAPSULE PO SCH (21:58)
[2022-04-04] MEDS: ATORVASTATIN CA 80 MG TABLET (FP) PO SCH (21:58)
[2022-04-04] MEDS: MELATONIN 5 MG TABLETS PO PRN (22:17)
[2022-04-05] MEDS: GABAPENTIN 100 MG CAPSULE PO SCH ×2 (06:08→16:06)
[2022-04-05] MEDS ORDERED: CYCLOBENZAPRINE HCL 10 MG TABLET (FP) PO PRN (08:15)
[2022-04-05] MEDS: ASPIRIN COATED 81 MG TABLET.EC PO SCH (09:37)
[2022-04-05] MEDS: ENOXAPARIN NA (PORCINE) 40 MG/0.4 ML DISP.SYRIN SQ SCH (09:37)
[2022-04-05] MEDS: PANTOPRAZOLE 40 MG TABLET PO SCH (09:37)
[2022-04-05] MEDS: amLODIPine BESYLATE 10 MG TABLET (FP) PO SCH (09:37)
[2022-04-05] MEDS: BUDESONIDE/FORMETEROL FUMARATE 160/4.5 mcg INHALER IH SCH ×2 (09:39→22:00)
[2022-04-05] MEDS: predniSONE 20 MG TABLET (UD) PO SCH (16:07)
[2022-04-05] MEDS: MELATONIN 5 MG TABLETS PO PRN (21:57)
[2022-04-05] MEDS: ATORVASTATIN CA 80 MG TABLET (FP) PO SCH (21:57)
[2022-04-05] MEDS: GABAPENTIN 300 MG CAPSULE PO SCH (21:57)
[2022-04-06] MEDS: GABAPENTIN 100 MG CAPSULE PO SCH ×2 (05:48→14:55)
[2022-04-06] MEDS: ENOXAPARIN NA (PORCINE) 40 MG/0.4 ML DISP.SYRIN SQ SCH (10:27)
[2022-04-06] MEDS: PANTOPRAZOLE 40 MG TABLET PO SCH (10:28)
[2022-04-06] MEDS: amLODIPine BESYLATE 10 MG TABLET (FP) PO SCH (10:28)
[2022-04-06] MEDS: ASPIRIN COATED 81 MG TABLET.EC PO SCH (10:28)
[2022-04-06] MEDS: predniSONE 20 MG TABLET (UD) PO SCH (10:28)
[2022-04-06] MEDS: BUDESONIDE/FORMETEROL FUMARATE 160/4.5 mcg INHALER IH SCH (10:30)
[2022-04-06 14:21] VITALS: RESP 20
[2022-04-06 18:03] VITALS: BP 128/65; PULSE 89; TEMP 98.4
== END 2022-04-06 18:50 | disposition home or self-care (01) ==
LOC: JER 02:57 → JERBED 08:26 → UNDOADMOB 08:26 → OBSVTOIN 04-03 08:29 → INTOOBSV 04-03 08:29 → J4W 04-03 21:02 → JERBED 04-03 21:02 → J4W 04-04 09:40 → J7W 04-04 11:55
PROVIDERS: ADMIT Internal Medicine; ATTEND Internal Medicine
PROC: 3E033NZ Introduction of Analgesics, Hypnotics, Sedatives into Peripheral Vein, Percutaneous Approach (ICD-10-PCS; principal; 2022-04-04)
PROC: 3E023GC Introduction of Other Therapeutic Substance into Muscle, Percutaneous Approach (ICD-10-PCS; 2022-04-04)
PROC: 3E033NZ Introduction of Analgesics, Hypnotics, Sedatives into Peripheral Vein, Percutaneous Approach (ICD-10-PCS; 2022-04-04)
PROC: 3E0337Z Introduction of Electrolytic and Water Balance Substance into Peripheral Vein, Percutaneous Approach (ICD-10-PCS; 2022-04-04)
DX: I12.9 Hypertensive chronic kidney disease with stage 1 through stage 4 chronic kidney disease, or unspecified chronic kidney disease (principal); K21.9 Gastro-esophageal reflux disease without esophagitis; R07.89 Other chest pain; J45.909 Unspecified asthma, uncomplicated; K57.90 Diverticulosis of intestine, part unspecified, without perforation or abscess without bleeding; R79.89 Other specified abnormal findings of blood chemistry; M54.2 Cervicalgia; R00.0 Tachycardia, unspecified; G47.30 Sleep apnea, unspecified; E78.00 Pure hypercholesterolemia, unspecified; N18.9 Chronic kidney disease, unspecified; G62.9 Polyneuropathy, unspecified
CPT/HCPCS: 0241U-QW; 36415; 71045-TC-FY; 71275-TC; 72070-TC-FY; 80053; 81003; 82570; 83690; 83735; 83880; 84100; 84156; 84443; 84479; 84484; 85025; 85379; 85610; 85651; 85730; 93005; 93010; 93306-TC; 94660; 94761; 97116-GP; 97161-GP; 99285-25; G0378

== ENCOUNTER 2022-05-29 05:30 | Day surgery (SDC) | payer OTHER ==
[2022-05-24 16:49] VITALS: BMI 52.4
[2022-05-29] MEDS ORDERED: FENTANYL CITRATE/PF 50 MCG/ML VIAL ONE (09:49)
[2022-05-29] MEDS ORDERED: MIDAZOLAM HCL 2 MG/2 ML SINGLE DOSE VIAL ONE (09:49)
[2022-05-29] MEDS ORDERED: ACETAMINOPHEN INJECTION 100 ML IVPB ONE (12:41)
[2022-05-29 14:28] VITALS: TEMP 97
[2022-05-29 16:10] VITALS: BP 137/76; PULSE 70; RESP 20
== END 2022-05-29 17:00 | disposition home or self-care (01) ==
LOC: JRADIR 05:30
PROVIDERS: ATTEND Internal Medicine
PROC: 0TB03ZX Excision of Right Kidney, Percutaneous Approach, Diagnostic (ICD-10-PCS; principal; 2022-05-29)
DX: I12.9 Hypertensive chronic kidney disease with stage 1 through stage 4 chronic kidney disease, or unspecified chronic kidney disease (principal); N18.9 Chronic kidney disease, unspecified
CPT/HCPCS: 50200; 81025; 88300-TC

== ENCOUNTER 2023-11-29 12:09 | Emergency (ER) | payer OTHER ==
[2023-11-29 12:23] VITALS: BP 142/82; PULSE 80; RESP 17; TEMP 98.4; BMI 52.1
[2023-11-29] MEDS ORDERED: ACETAMINOPHEN INJECTION 100 ML ONE (13:39)
[2023-11-29] MEDS ORDERED: ONDANSETRON 4 MG/2 ML VIAL ONE (13:39)
[2023-11-29 15:30] LABS: PH,URINE 5.5 (5.0-8.0); URINE APPEARANCE CLOUDY; URINE BILIRUBIN NEGATIVE (NEGATIVE); URINE COLOR YELLOW; URINE GLUCOSE (UA) NEGATIVE (NEGATIVE); URINE KETONE NEGATIVE (NEGATIVE); URINE LEUK ESTERASE NEGATIVE (NEGATIVE); URINE NITRITE NEGATIVE (NEGATIVE); URINE PROTEIN TRACE (NEGATIVE); URINE UROBILINOGEN 0.2 mg/dL (0.2-1.0)
[2023-11-29] MEDS: SODIUM CHLORIDE 1,000 ML IV STA (15:59)
[2023-11-29] MEDS: ONDANSETRON 4 MG/2 ML VIAL IVPUSH ONE (16:00)
[2023-11-29] MEDS: ACETAMINOPHEN 1000 MG/100 ML BAG IVPB ONE (16:00)
[2023-11-29 16:04] LABS: BASO % 0.6 % (0-2.0); EOS % 0.8 % (0-4.5); HEMATOCRIT 36.9 % (32.4-45.2); HEMOGLOBIN 11.6 GM/dL (10.7-15.3); LYMPH % 24.8 % (8-40); MCH 27.4 pg (25.7-33.7); MCHC 31.4 g/dl (32.0-36.0); MEAN CELL VOLUME 87.5 fl (80-96); MEAN PLT VOLUME 8.5 fl (7.5-11.1); MONO % 5.2 % (3.8-10.2); NEUT % 68.6 % (42.8-82.8); PLATELET COUNT 410 10^3/uL (134-434); RBC 4.21 M/mm3 (3.60-5.2); RDW 14.4 % (11.6-15.6); WHITE BLOOD COUNT 11.9 K/mm3 (4.0-10.0)
[2023-11-29 16:11] LABS: INR 1.11 (0.83-1.09); PROTHROMBIN TIME (PATIENT) 12.5 SEC (9.7-13.0)
[2023-11-29 16:13] LABS: ACTIVATED PTT 33.2 SECONDS (25.2-36.5)
[2023-11-29 16:35] LABS: ALBUMIN 3.6 g/dl (3.4-5.0); BLOOD UREA NITROGEN 22.5 mg/dL (7-18); CALCIUM 9.4 mg/dL (8.5-10.1)
[2023-11-29 16:39] LABS: CREATININE 1.5 mg/dL (0.55-1.3)
[2023-11-29 16:40] LABS: BILIRUBIN,TOTAL 0.3 mg/dL (0.2-1); TOT PROT 7.8 g/dl (6.4-8.2)
[2023-11-29 17:46] LABS: HIV INTERPRETATION NEGATIVE (NEGATIVE)
== END 2023-11-29 18:46 | disposition home or self-care (01) ==
LOC: JER 12:09
PROC: 3E033NZ Introduction of Analgesics, Hypnotics, Sedatives into Peripheral Vein, Percutaneous Approach (ICD-10-PCS; principal; 2023-11-29)
PROC: 3E033GC Introduction of Other Therapeutic Substance into Peripheral Vein, Percutaneous Approach (ICD-10-PCS; 2023-11-29)
PROC: 3E0337Z Introduction of Electrolytic and Water Balance Substance into Peripheral Vein, Percutaneous Approach (ICD-10-PCS; 2023-11-29)
DX: R10.84 Generalized abdominal pain (principal); K80.70 Calculus of gallbladder and bile duct without cholecystitis without obstruction; R11.0 Nausea
CPT/HCPCS: 36415; 71046-TC-FY; 74176-TC; 76705-TC; 80053; 81003; 83690; 84484; 85025; 85610; 85730; 86803; 86850; 86900; 86901; 87086; 87389; 93005; 93010; 99285-25; J0131